=== PATIENT | female | born 1960 | race Caucasian/White ===

== ENCOUNTER 2017-06-27 14:28 | Emergency (ER) | payer BC ==
--- NOTE | 2017-06-27 14:46 | UC ---
Cardiac HPI - HPI Summary HPI Summary: 57 YEAR OLD FEMALE PRESENTS WITH CHEST PAIN AND EXCESSIVE FATIGUE. - History of Current Complaint Chief Complaint: UCChestPain Stated Complaint: CHEST PAIN,DIFFICULTY BREATHING Time Seen by Provider: 06/27/17 14:45 Hx Obtained From: Patient Hx Last Menstrual Period: n/a Onset/Duration: Sudden Onset Initial Severity: Moderate Current Severity: Moderate Chest Pain Location: Left Anterior Character: Slow Aggravating Factor(s): Exertion Alleviating Factor(s): Rest - Allergy/Home Medications Allergies/Adverse Reactions: Allergies Allergy/AdvReac Type Severity Reaction Status Date / Time Morphine Allergy Severe irregular Verified 06/27/17 15:54 heart beat, rash Sulfa Drugs Allergy Severe Irregular Verified 06/27/17 15:54 heartbeat,irregular BP sodium pentothal Allergy Severe irregular Uncoded 06/27/17 15:54 heatbeat and irregular BP Home Medications: Home Medications Ambern 400 mg DAILY 06/27/17 [History Confirmed 06/27/17] PMH/Surg Hx/FS Hx/Imm Hx Previously Healthy: Yes - Surgical History Surgical History: Yes Surgery Procedure, Year, and Place: 3X LAPAROSCOPIES FOR OVARIAN CYSTS EARLY -WISDOM TEETH 1979-PARTIAL HYSTERECTOMY 2006, tubal ligation 1987,Breast augmentation 2001 - Family History Known Family History: Positive: Cardiac Disease - Social History Alcohol Use: Daily Alcohol Amount: 1 glass of wine per night Substance Use Type: None Smoking Status (MU): Never Smoked Tobacco Review of Systems Constitutional: Fatigue Skin: Negative Eyes: Negative ENT: Negative Respiratory: Negative Cardiovascular: Chest Pain Gastrointestinal: Negative Genitourinary: Negative Motor: Negative Neurovascular: Negative Musculoskeletal: Negative Neurological: Negative Psychological: Negative All Other Systems Reviewed And Are Negative: Yes Physical Exam Triage Information Reviewed: Yes Appearance: Ill-Appearing Vital Signs: Initial Vital Signs Temp 36.3 C 06/27/17 14:30 Pulse 70 06/27/17 14:30 Resp 17 06/27/17 14:30 BP 129/73 06/27/17 14:30 Pulse Ox 100 06/27/17 14:30 Eye Exam: Normal ENT Exam: Normal Dental Exam: Normal Neck exam: Normal Neck: Positive: 1 Respiratory Exam: Normal Cardiovascular Exam: Normal Abdominal Exam: Normal Musculoskeletal Exam: Normal Neurological Exam: Normal Psychological Exam: Normal Skin Exam: Normal - Clinical Impression Provider Diagnoses: CHEST PAIN. SLOW HEART RATE Discharge - Discharge Plan Condition: Stable Disposition: HOME Patient Education Materials: Dyspnea (ED), Weakness (ED), Fatigue (ED) Referrals: Chao Aranda DO [Primary Care Provider] - Additional Instructions: PLEASE SUGGESTED TO GO TO [facility] FOR FURTHER CARDIAC WORKUP.
[2017-06-27 14:59] VITALS: BP 126/72
== END 2017-06-27 14:59 | disposition home or self-care (01) ==
LOC: UCCORT 14:28
DX: R07.9 Chest pain, unspecified (principal); R00.1 Bradycardia, unspecified; R94.31 Abnormal electrocardiogram [ECG] [EKG]; Z88.5 Allergy status to narcotic agent; Z88.2 Allergy status to sulfonamides; Z88.8 Allergy status to other drugs, medicaments and biological substances
CPT/HCPCS: 93005; 99212; G0463

== ENCOUNTER 2017-06-27 15:48 | Emergency (ER) | payer BC ==
[2017-06-27 18:12] LABS: Hematocrit 40 % (35-47); Hemoglobin 13.5 g/dl (12.0-16.0); Mean Corpuscular HGB Conc 34 g/dl (31-36); Mean Corpuscular Hemoglobin 32 pg (27-31); Mean Corpuscular Volume 94 fL (80-97); Mean Platelet Volume 8 um3 (7.4-10.4); Red Blood Count 4.21 10^6/ul (4.0-5.4); Red Cell Distribution Width 13 % (10.5-15); White Blood Count 3.4 10^3/ul (3.5-10.8)
[2017-06-27 18:24] LABS: Albumin 4.2 g/dL (3.2-5.2); BUN/Creatinine Ratio 27.8 (8-20); Calcium 9.4 mg/dL (8.6-10.3); EGFR Non-African American 64.5 (>60); Globulin 2.8 g/dL (2-4); Potassium 4.3 mmol/L (3.5-5.0); Total Bilirubin 0.3 mg/dL (0.2-1.0)
[2017-06-27] MEDS ORDERED: NS 0.9% 1000 ML* 1,000 ML IV ONE (18:26)
[2017-06-27 18:31] LABS: Add Diff/Slide Review? Slide Review Added; Comments Flag Yes
--- NOTE | 2017-06-27 18:46 | ED ---
Romeo Smallwood Thomas, scribed for Alvarado Arteaga MD on 06/27/17 at 1803 . HPI Chest Pain - HPI Summary HPI Summary: The pt is a 57 y/o F presenting to the ED c/o CP that began 10 days ago. At onset, the pain was a dull ache that was worsened with movement and deep breaths. Since then, the pain is constant and it is still worse with movement and deep breaths. She still has pain when she is absolutely still. The pain is not reproducible. The pain radiates into her back. The pt rates the pain 5/10. The patient has treated the pain with ASA 324 last night. Pt additionally c/o nausea, hot flashes, and a nonproductive cough. She has treated her hot flashes with Amberen for the last five days. Pt denies leg pain, abd pain, decreased appetite, and SOB. Last year, she had an episode of CP that turned out to be PNA. PMHx: CO, anxiety, PCOS. PSHx: partial hysterectomy, tubal ligation. SHx: no smoking, daily alcohol use, no illicit drug use. FHx: DVT, CAD. She is accompanied by her . 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 - History of Current Complaint Chief Complaint: EDChestPainROMI Time Seen by Provider: 06/27/17 17:59 Hx Obtained From: Patient, Family/Advanced Manufacturing Engineer - is present Hx Last Menstrual Period: n/a Onset/Duration: Started Days Ago - onset 10 days ago, Still Present Timing: Constant Pain Intensity: 5 Pain Scale Used: 0-10 Numeric Chest Pain Radiates: Yes Chest Pain Radiates To:: Back Character: Dull/Aching Aggravating Factor(s): Movement, Deep Breaths, Other: - Pain is still present even when completely still Alleviating Factor(s): Nothing Associated Signs and Symptoms: Positive: Chest Pain, Nausea, Productive Cough, Other: - Hot flashes; NEGATIVE: leg pain, decreased appetite. Negative: Shortness of Breath, Swelling - to feet, Fever, Abdominal Pain - Allergy/Home Medications Allergies/Adverse Reactions: Allergies Allergy/AdvReac Type Severity Reaction Status Date / Time Morphine Allergy Severe irregular Verified 06/27/17 15:54 heart beat, rash Sulfa Drugs Allergy Severe Irregular Verified 06/27/17 15:54 heartbeat,irregular BP sodium pentothal Allergy Severe irregular Uncoded 06/27/17 15:54 heatbeat and irregular BP PMH/Surg Hx/FS Hx/Imm Hx Previously Healthy: No Endocrine/Hematology History: Reports: Hx Thyroid Disease Denies: Hx Diabetes Cardiovascular History: Reports: Other Cardiovascular Problems/Disorders - CO 2008 Denies: Hx Hypertension, Hx Pacemaker/ICD History: Denies: Hx Renal Disease Musculoskeletal History: Reports: Hx Back Problems Sensory History: Denies: Hx Hearing Aid Psychiatric History: Reports: Hx Eating Disorder - 1987 anorexia, Hx Panic Disorder - Surgical History Surgery Procedure, Year, and Place: 3X LAPAROSCOPIES FOR OVARIAN CYSTS EARLY -WISDOM TEETH 1979-PARTIAL HYSTERECTOMY 2006, tubal ligation 1987,Breast augmentation 2001 Infectious Disease History: No Infectious Disease History: Denies: History Other Infectious Disease, Traveled Outside the [place] in Last 30 Days - Family History Known Family History: Positive: Cardiac Disease - Social History Alcohol Use: Daily Alcohol Amount: 1 glass of wine per night Hx Substance Use: No Substance Use Type: Reports: None Hx Tobacco Use: No Smoking Status (MU): Never Smoked Tobacco Review of Systems Positive: Other - Hot flashes. Negative: Fever Positive: Chest Pain - worse with movement and onset today at 14:00 Negative: Shortness Of Breath Positive: Nausea. Negative: Abdominal Pain, Other - NEGATIVE: decreased appetite Negative: Other - NEGATIVE: leg pain All Other Systems Reviewed And Are Negative: Yes Physical Exam Triage Information Reviewed: Yes Vital Signs On Initial Exam: Initial Vitals Temp Pulse Resp BP Pulse Ox 97.4 F 71 16 133/75 97 06/27/17 15:54 06/27/17 15:54 06/27/17 15:54 06/27/17 15:54 06/27/17 15:54 Vital Signs Reviewed: Yes Appearance: Positive: Well-Appearing, No Pain Distress Skin: Positive: Warm, Skin Color Reflects Adequate Perfusion Head/Face: Positive: Normal Head/Face Inspection Eyes: Positive: EOMI ENT: Positive: Normal ENT inspection, Hearing grossly normal, Pharynx normal Neck: Positive: Nontender Respiratory/Lung Sounds: Positive: Clear to Auscultation, Breath Sounds Present Cardiovascular: Positive: RRR. Negative: Murmur Abdomen Description: Positive: Nontender Musculoskeletal: Positive: Strength/ROM Intact, Other - chest wall is non tender to palpation. Negative: Edema Left, Edema Right Neurological: Positive: Sensory/Motor Intact, Alert, Oriented to Person Place, Time, CN Intact II-III Psychiatric: Positive: Normal - Kina Coma Scale Best Eye Response: 4 - Spontaneous Best Motor Response: 6 - Obeys Commands Best Verbal Response: 5 - Oriented Coma Scale Total: 15 Diagnostics - Vital Signs Vital Signs Temp Pulse Resp BP Pulse Ox 06/27/17 17:00 58 13 129/72 98 06/27/17 16:54 65 14 97 06/27/17 16:52 138/59 06/27/17 15:54 97.4 F 71 16 133/75 97 - Laboratory Lab Results: Lab Results 06/27/17 06/27/17 Range/Units 17:00 17:00 Sodium 138 (133-145) mmol/L Potassium 4.3 (3.5-5.0) mmol/L Chloride 107 (101-111) mmol/L Carbon Dioxide 26 (22-32) mmol/L Anion Gap 5 (2-11) mmol/L BUN 25 H (6-24) mg/dL Creatinine 0.90 (0.51-0.95) mg/dL Est GFR ( Amer) 83.0 (>60) Est GFR (Non-Af Amer) 64.5 (>60) BUN/Creatinine Ratio 27.8 H (8-20) Glucose 91 (70-100) mg/dL Lactic Acid 0.7 (0.5-2.0) mmol/L Calcium 9.4 (8.6-10.3) mg/dL Total Bilirubin 0.30 (0.2-1.0) mg/dL AST 17 (13-39) U/L ALT 14 (7-52) U/L Alkaline Phosphatase 58 (34-104) U/L Troponin I 0.00 (<0.04) ng/mL Total Protein 7.0 (6.4-8.9) g/dL Albumin 4.2 (3.2-5.2) g/dL Globulin 2.8 (2-4) g/dL Albumin/Globulin Ratio 1.5 (1-3) Result Diagrams: 06/27/17 17:00 06/27/17 17:00 Lab Statement: Any lab studies that have been ordered have been reviewed, and results considered in the medical decision making process. - EKG 16:02 Cardiac Rate: NL - 67 BPM EKG Interpretation: Sinus rhythm. No acute changes. Chest Pain Course/Dx - Course Assessment/Plan: The pt is a 57 y/o F presenting to the ED c/o CP that began 10 days ago and radiates into her back. At onset, the pain was a dull ache that was worsened with movement and deep breaths. Pt additionally c/o nausea, hot flashes, and a nonproductive cough. - Diagnoses Provider Diagnoses: Pleuritic chest pain Discharge - Discharge Plan Condition: Good Disposition: OTHER Discharge Disposition Comment: awaiting CT angio, dispo; sign out Dr Vasques 190 Referrals: Chao Aranda DO [Primary Care Provider] - The documentation as recorded by the Romeo torres Thomas accurately reflects the service I personally performed and the decisions made by , Alvarado Arteaga MD.
--- NOTE | 2017-06-27 18:53 | RAD ---
INDICATION: Chest pain COMPARISON: Similar chest x-ray dated July 01, 2016 TECHNIQUE: Single AP portable view of the chest was obtained. FINDINGS: Image quality is compromised due to the relative inferiority of a portable chest x-ray. The heart and mediastinum exhibit normal size and contour. The lungs are grossly clear. There is no evidence of a large pleural effusion. Visualized bones are normal for the patient's age. IMPRESSION: No radiographic evidence for acute cardiopulmonary abnormality on this portable chest x-ray.
[2017-06-27] MEDS ORDERED: Iohexol 350* (CONTRAST) 500 ML MDV IV ONE (19:10)
--- NOTE | 2017-06-27 20:08 | RAD ---
INDICATION: Pleuritic chest pain COMPARISON: None TECHNIQUE: Axial source images were acquired following the administration of 62 mL Omnipaque [address] angiographic technique. Coronal and sagittal reconstructed images were constructed and reviewed. FINDINGS: Involving the segmental branches and lobar branch of the right middle lobe there are nonocclusive filling defects consistent with pulmonary embolus (axial image 131 sagittal image 48). There are no focal infiltrates or effusions. There are no pulmonary parenchymal masses. The heart is normal in size. There is no evidence of pericardial effusion. There is no evidence of aortic aneurysm or dissection. There is no mediastinal, hilar, or axillary lymphadenopathy. The visualized osseous structures appear normal. Limited views of the upper abdomen show no abnormalities. IMPRESSION: Partially occlusive lobar and segmental pulmonary emboli involving the right middle lobe pulmonary arteries. Findings were conveyed to Dr. Heath over the telephone at 2005 hours on June 27, 2017.
[2017-06-27 21:01] VITALS: BP 120/72
[2017-06-28] MEDS ORDERED: Rivaroxaban TAB(*) 15 MG PO ONE (21:00)
== END 2017-06-27 21:01 | disposition home or self-care (01) ==
LOC: ED 15:48
DX: R07.81 Pleurodynia (principal); E07.9 Disorder of thyroid, unspecified; I25.2 Old myocardial infarction; Z88.5 Allergy status to narcotic agent; Z88.2 Allergy status to sulfonamides
CPT/HCPCS: 36415; 71010; 71275; 80053; 83605; 84484; 85025; 93005; 96374; 99283; Q9967

== ENCOUNTER 2019-02-02 12:41 | Observation (INO) | payer BC, OTHER ==
--- NOTE | 2019-02-02 13:11 | ED ---
Lower Extremity - HPI Summary HPI Summary: This patient is a 58 year old female presenting to [facility] with a chief complaint of RLE pain after a fall. The patient was at work getting a position sponge for an XR when she fell. They took images there and the patient states she had a dislocated right patella and fractured right knee cap. The patient has previous ligament injury to this knee which healed. The patient has a Hx of pulmonary embolism. The patient rates her pain 5/[address] Alford, orthopedic surgery, told her to come here given her prior Hx and to get admitted for surgery. Pt denies any fever, chills, erythema of eyes, sore throat, CP, SOB, cough, abdominal pain, N/V, dysuria, hematuria, myalgia, edema, rash, or dizziness. Ibuprofen TAB* [Motrin TAB* 400 MG] 400 mg PO BID PRN 11/23/12 [History Confirmed 03/17/18] Betamethasone Valerate 45 gm TP BID 7 Days #1 tube 03/17/18 [Rx] Betamethasone Valerate 45 gm TP BID 7 Days #1 tube 03/17/18 [Rx] Thyroid,Pork [[place] Thyroid] 60 mg PO DAILY 03/17/18 [History Confirmed ] methylPREDNISolone [Medrol Dosepak 4 MG*] 0 mg PO .SEE MAVIS [employer]CTION 6 Days # 1 mavis 03/17/18 [Rx] methylPREDNISolone [Medrol] 4 mg PO .PER MAVIS 6 Days #1 mavis 03/17/18 [Rx] - History of Current Complaint Chief Complaint: EDExtremityLower Stated Complaint: LEFT KNEE FX PER EMS Time Seen by Provider: 02/02/19 12:54 Hx Obtained From: Patient Hx Last Menstrual Period: n/a Mechanism Of Injury: Fall From A Standing Position Onset of Pain: Hours Onset/Duration: Hours Pain Intensity: 5 Pain Scale Used: 0-10 Numeric Timing: Constant Location: Is Discrete @ - Right knee cap - Allergies/Home Medications Allergies/Adverse Reactions: Allergies Allergy/AdvReac Type Severity Reaction Status Date / Time morphine Allergy Rash, Verified 02/02/19 12:54 IRREGULAR HEARTBEAT Sulfa (Sulfonamide Allergy IRREGULAR Verified 02/02/19 12:54 Antibiotics) HEARTBEAT,IRREGULAR BP sodium pentothal Allergy Severe irregular Uncoded 03/17/18 07:44 heatbeat and irregular BP Home Medications: Home Medications Aspirin TAB* [Aspirin 325 MG TAB*] 650 mg PO ONCE 02/02/19 [History Confirmed ] Biotin 10,000 mcg PO DAILY 02/02/19 [History Confirmed 02/02/19] PMH/Surg Hx/FS Hx/Imm Hx Endocrine/Hematology History: Reports: Hx Thyroid Disease Denies: Hx Diabetes Cardiovascular History: Reports: Other Cardiovascular Problems/Disorders - CT 2008 Denies: Hx Hypertension, Hx Pacemaker/ICD History: Denies: Hx Renal Disease Musculoskeletal History: Reports: Hx Back Problems Sensory History: Denies: Hx Hearing Aid Psychiatric History: Reports: Hx Eating Disorder - 1987 anorexia Denies: Hx Panic Disorder - Surgical History Surgery Procedure, Year, and Place: 3X LAPAROSCOPIES FOR OVARIAN CYSTS EARLY -WISDOM TEETH 1979-PARTIAL HYSTERECTOMY 2006, tubal ligation 1987,Breast augmentation 2001 Infectious Disease History: No Infectious Disease History: Denies: History Other Infectious Disease, Traveled Outside the [place] in Last 30 Days - Family History Known Family History: Positive: Cardiac Disease - Social History Alcohol Use: Occasionally Alcohol Amount: 1 glass of wine per night Hx Substance Use: No Substance Use Type: Reports: None Hx Tobacco Use: No Smoking Status (MU): Never Smoked Tobacco Review of Systems Negative: Fever, Chills Negative: Erythema Negative: Sore Throat Negative: Chest Pain Negative: Shortness Of Breath, Cough Negative: Abdominal Pain, Vomiting, Nausea Negative: dysuria, hematuria Negative: Myalgia, Edema Negative: Rash Neurological: Other - Neg: Dizziness All Other Systems Reviewed And Are Negative: No Physical Exam - Summary Physical Exam Summary: Constitutional: Well-developed, Well-nourished, Alert, Cooperative Skin: Warm, Dry HENT: Normocephalic; No Racoons eyes; No clinton's sign; No abrasion; No contusion; No hemotympanum; No maxilla facial tenderness or instability; Dentition are smooth; No dental trauma; No trismus Eyes: EOM normal, PERRL Neck: Trachea is midline. No stridor; No JVD; No step off; No posterior cervical spine tenderness Cardio: Rhythm regular, rate normal Heart sounds normal; Intact distal pulses; The pedal pulses are 2+ and symmetric. Radial pulses are 2+ and symmetric. Pulmonary/Chest wall: Effort normal; Breath sounds normal; Equal chest rise; No flail segment; No rib tenderness; No sternal tenderness Abd: Soft, Appearance normal. No distension; No tenderness; No palpable pulsatile mass; No Cullens sign; No Amaya-Turners sign Musculoskeletal: Extremely limited ROM and tenderness in right knee. Full ROM and no tenderness at hips, ankles, shoulders, elbows bilaterally and left knee; No joint swelling; No vertebral body tenderness; No paraspinal tenderness; No step off or deformity of the spine; Pelvis is stable to lateral compression and rock Neuro: Alert, Oriented x3, Strength 5/5 all extremities. : No blood at urethral meatus Psych: Mood and affect Normal Triage Information Reviewed: Yes Vital Signs On Initial Exam: Initial Vitals Temp Pulse Resp BP Pulse Ox 98.2 F 62 16 133/85 99 02/02/19 12:53 02/02/19 12:53 02/02/19 12:53 02/02/19 12:53 02/02/19 12:53 Vital Signs Reviewed: Yes Diagnostics - Vital Signs Vital Signs Temp Pulse Resp BP Pulse Ox 02/02/19 12:53 98.2 F 62 16 133/85 99 - Laboratory Result Diagrams: 02/02/19 13:20 02/02/19 13:20 Lab Statement: Any lab studies that have been ordered have been reviewed, and results considered in the medical decision making process. - CT Right lower extremity CT Interpretation Completed By: Radiologist Summary of CT Findings: Comminuted fracture of the patella with the main superior component distracted approximately 1.9 cm superiorly the inferior component of the patella. The inferior portion of the patella demonstrates a moderate degree of comminution. ED Provider has reviewed this report. Lower Extremity Course/Dx - Course Course Of Treatment: This patient is a 58 year old female presenting to [facility] with a chief complaint of RLE pain after a fall. The patient was at work getting a position sponge for an XR when she fell. CT RLE shows Comminuted fracture of the patella with the main superior component distracted approximately 1.9 cm superiorly the inferior component of the patella. The inferior portion of the patella demonstrates a moderate degree of comminution. Dr. Alford, Orthopedic Surgery, stated she will perform surgery on her and the patient will be admitted. The patient is agreeable with this plan. - Diagnoses Provider Diagnoses: Comminuted fracture of right patella Discharge - Sign-Out/Discharge Documenting (check all that apply): Patient Departure - Admission - Discharge Plan Condition: Stable Disposition: ADMITTED TO [facility] - Attestation Statements Document Initiated by Scribe: Yes Documenting Scribe: Charlie Ramirez Provider For Whom Scribe is Documenting (Include Credential): August Lowry MD Scribe Attestation: Charlie Smallwood, scribed for August Lowry MD on 02/02/19 at 1611.
[2019-02-02] MEDS ORDERED: Famotidine IV* 10 MG/ML 2 ML (20 mg) IV SLOW PU ONE (13:49)
[2019-02-02 13:57] LABS: Hematocrit 37 % (35-47); Hemoglobin 12.5 g/dL (12.0-16.0); Mean Corpuscular HGB Conc 34 g/dL (31-36); Mean Corpuscular Hemoglobin 32 pg (27-31); Mean Corpuscular Volume 93 fL (80-97); Mean Platelet Volume 8.1 fL (7.4-10.4); Platelet Count 251 10^3/uL (150-450); Red Blood Count 3.98 10^6 /uL (3.70-4.87); Red Cell Distribution Width 13 % (10.5-15)
[2019-02-02] MEDS ORDERED: Metoclopramide IV* 5 MG/ML 2 ML VIAL IV SCH (14:00)
[2019-02-02 14:08] LABS: Albumin 4.3 g/dL (3.2-5.2); Albumin/Globulin Ratio 1.9 (1-3); Calcium 9.5 mg/dL (8.6-10.3); EGFR African American 87.9 (>60); EGFR Non-African American 72.6 (>60); Globulin 2.3 g/dL (2-4); Potassium 3.9 mmol/L (3.5-5.0); Total Bilirubin 0.6 mg/dL (0.2-1.0); Total Protein 6.6 g/dL (6.4-8.9)
[2019-02-02 14:22] LABS: Activated Partial Thrombo Time 27.5 seconds (26.0-36.3); INR 1.08 (0.82-1.09)
[2019-02-02] MEDS ORDERED: Famotidine IV* 10 MG/ML 2 ML (20 mg) ONE (14:26)
[2019-02-02] MEDS ORDERED: Metoclopramide IV* 5 MG/ML 2 ML VIAL ONE (14:26)
--- NOTE | 2019-02-02 14:36 | HP ---
HISTORY AND PHYSICAL: DATE OF ADMISSION: 02/02/19 PROVIDER: Chao Fernandes MD * (DICTATED BY KALIE CARRASCO) CHIEF COMPLAINT: Right knee injury. HISTORY OF PRESENT ILLNESS: Cecily is a 58-year-old female who presents to the emergency room with complaints of a left knee injury that she sustained earlier today. 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 She had x-rays obtained immediately after that and was found to have a right patella fracture. She was then transferred to the emergency room for further evaluation. PAST MEDICAL HISTORY: Hypothyroidism and a history of pulmonary embolism. PAST SURGICAL HISTORY: Multiple laparoscopies, partial hysterectomy and breast augmentation. She reports no complications with anesthesia with those procedures. CURRENT MEDICATIONS: [place] Thyroid 60 mg daily. ALLERGIES: MORPHINE and SULFA DRUGS. 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 She lives with her . She denies tobacco use. She drinks 2 to 3 glasses of wine daily. She exercises occasionally. REVIEW OF SYSTEMS: Constitutional: Negative for recent hospitalizations, fevers or chills. Positive for occasional night sweats due to menopause. Head : Negative for dizziness, lightheadedness, or frequent headaches. Eyes: Negative for blurred or double vision. ENT: Negative for sore throat, runny nose, frequent nosebleeds or hearing changes. Cardiovascular: Negative for history of heart murmur, heart palpitations, high blood pressure. Positive for an embolism. Negative for known deep vein thrombosis. Respiratory: Negative for chronic cough, shortness of breath with exertion, asthma or COPD. Gastrointestinal: Negative for heartburn, nausea, vomiting, diarrhea, constipation or GERD. Genitourinary: Negative for nighttime urination, frequency of urination, urinary tract infections, or kidney problems. Musculoskeletal: Negative for chronic back or neck pain. Positive for recent fracture. Skin: Negative for rashes, lesions, lumps or sores. Neurologic: Negative for history of seizure, stroke, epilepsy, depression, or anxiety. Endocrine: Negative for diabetes. Positive for hypothyroidism. Hematology: Negative for easy bleeding, bruising, or anemia. PHYSICAL EXAMINATION GENERAL: She is a well-developed, well-nourished female, in moderate pain, lying on the emergency room stretcher. VITAL SIGNS: The patient is 5 feet 7-1/2 inches tall, she is 148 pounds. Blood pressure 133/85, pulse is 62, respirations 16, temperature 98.2. HEENT: Normocephalic, atraumatic. Her hearing and vision are grossly intact. NECK: Her trachea is midline. CARDIOVASCULAR: Regular rate and rhythm. No murmurs, rubs, or gallops appreciated. RESPIRATORY: Her lungs are clear to auscultation bilaterally. No wheezes, rales, or rhonchi. ABDOMEN: Soft, nondistended, nontender. EXTREMITIES: Exam of the right lower extremity: The patient has a very small abrasion over the anterior aspect of her knee. There is mild ecchymosis and some localized swelling over the patella present. She has tenderness to palpation at the peripatellar area. She is nontender over the medial and lateral aspects or the posterior aspect of her knee. Flexion and extension were not assessed secondary to pain. Her calf is soft and nontender distally. She is neurovascularly intact. IMAGING: AP and lateral views of the right knee were reviewed and showed a severely comminuted, significantly displaced patellar fracture. IMPRESSION: Right patellar fracture. PLAN: The patient will be admitted to [facility] to undergo open reduction internal fixation of the right patella. The risks, benefits, and postoperative course will be discussed with the patient prior to consenting for the surgery. Postoperatively, the patient will be on anticoagulation given her history of pulmonary embolism. She will be locked in extension for at least 6 weeks postoperatively as well, but may begin weightbearing as tolerated in the brace. We will follow up with this patient postoperatively. KALIE CARRASCO [id number]/[facility] #: [id number] DANNY
[2019-02-02] MEDS ORDERED: Midazolam* 1 MG/ML 2 ML VIAL (2 MG) ONE ×2 (15:02→16:59)
[2019-02-02] MEDS ORDERED: fentaNYL* 50 MCG/ML 2 ML VIAL (100 MCG VIAL) ONE (15:02)
[2019-02-02] MEDS ORDERED: Bupivacaine 0.5% W/EPI SDV* 30 ML VIAL ONE (15:13)
[2019-02-02] MEDS ORDERED: ceFAZolin 2 GM PREMIX in ORs 2 GM/50 ML BAG IVPB ONE (15:39)
[2019-02-02] MEDS ORDERED: Bupivacaine 0.5% SDV PF* 30ML VIAL ONE (15:47)
[2019-02-02] MEDS ORDERED: Lidocaine 2% PF * 5 ML VIAL ONE (16:57)
[2019-02-02] MEDS ORDERED: Propofol* 10 MG/ML 20 ML BTL ONE (16:57)
[2019-02-02] MEDS ORDERED: oxyCODONE/Acetamin 5/325 MG* TAB PO PRN ×2 (19:04→19:08)
[2019-02-02] MEDS ORDERED: Ketorolac INJ* 30 MG/ML 1 ML VIAL IV PRN (19:04)
[2019-02-02] MEDS ORDERED: HYDROcodone/ACETAMIN 5-325 MG* 1 TAB PO PRN (19:04)
[2019-02-02] MEDS ORDERED: fentaNYL* 50 MCG/ML 2 ML VIAL (100 MCG VIAL) IV PRN (19:04)
[2019-02-02] MEDS ORDERED: Ondansetron INJ* 2 MG/ML VIAL IV PRN (19:04)
[2019-02-02] MEDS ORDERED: Naloxone* 0.4 MG/ML 1 ML VIAL IV PRN (19:04)
[2019-02-02] MEDS ORDERED: diPHENhydraMINE IV* 50 MG/ML 1 ml VIAL (BENADRYL) IV PRN (19:08)
[2019-02-02] MEDS ORDERED: Morphine INJ* 2 MG/ML 1 ML SYRINGE (TWO MG - NEW SYRINGE VERSION) IV PRN (19:08)
[2019-02-02] MEDS ORDERED: Magnesium Hydroxide LIQ* 30 ML UDC PO PRN (19:08)
[2019-02-02] MEDS: Acetaminophen TAB* 325 MG PO SCH (22:41)
[2019-02-02] MEDS: Magnesium Hydroxide LIQ* 30 ML UDC PO SCH (22:42)
[2019-02-02] MEDS: Lactated Ringers 1000 ML Bag* 1,000 ML IV SCH (22:42)
[2019-02-02] MEDS: Docusate CAP* 100 MG PO SCH (22:42)
[2019-02-03] MEDS: HYDROmorphone INJ1* 1 MG/ML SYRINGE IV PRN ×3 (01:41→17:57)
[2019-02-03] MEDS: Ondansetron INJ* 2 MG/ML VIAL IV PRN ×2 (01:41→10:24)
[2019-02-03] MEDS: Acetaminophen TAB* 325 MG PO SCH ×3 (06:00→22:25)
[2019-02-03] MEDS: ceFAZolin 1 GM ADVAN(*) 1 GM in NS 0.9% 50 ML* 50 ML IVPB SCH ×4 (07:40→16:25)
[2019-02-03] MEDS: oxyCODONE/Acetamin 5/325 MG* TAB PO PRN ×4 (07:41→16:26)
[2019-02-03] MEDS ORDERED: Diazepam TAB(*) 5 MG PO PRN (09:54)
--- NOTE | 2019-02-03 10:02 | PN ---
Progress Note - Progress Note Date of Service: 02/03/19 SOAP: Subjective: Much pain overnight. Also felt so GI upset, so narcotics changed overnight. Still some numbness and tingling right foot after spinal anesthesia Objective: RLE: - Dressing c/d/i - Knee brace in place - Sensation intact to light touch right foot, motor intact Selected Entries 02/03/19 07:24 Temperature 98.6 F Pulse Rate 62 Respiratory 16 Rate Blood Pressure 128/59 (mmHg) O2 Sat by Pulse 96 Oximetry Laboratory Tests 02/02/19 13:20 WBC 5.0 Hct 37 X-rays in PACU confirm excellent reduction and fixation of a complex comminuted patella fracture Assessment: POD 1 R patella open reduction internal fixation Plan: - Knee brace on at all times, day and night. Maintain knee in full extension - I removed the pillow from underneath her knee. Please no pillows as this can flex the knee. - Pain control. We will add muscle relaxants to help with muscle spasm pain typically seen after this procedure. - OT/PT can be consulted for help with living at home with postop limitations. But no strengthening or ROM RLE. Patient is to use an assist device at all times, crutches or walker and is toe touch weight bearing right lower extremity with the knee brace or immobilizer in place - Dispo planning - Ancef q 8 hours until discharge - Given history of PE, we have placed patient on Lovenox 40mg SQ daily
[2019-02-03] MEDS: Lactated Ringers 1000 ML Bag* 1,000 ML IV SCH ×2 (10:23→21:54)
[2019-02-03] MEDS: Cyclobenzaprine TAB* 10 MG PO PRN ×2 (10:24→17:56)
[2019-02-03] MEDS: Docusate CAP* 100 MG PO SCH ×2 (10:41→21:54)
[2019-02-03] MEDS: Magnesium Hydroxide LIQ* 30 ML UDC PO SCH ×2 (10:41→21:54)
[2019-02-03] MEDS ORDERED: Scopolamine 1.5 mg* PATCH TRANSDERM SCH (11:00)
[2019-02-03] MEDS: Enoxaparin(*) 40 MG/0.4 ML SYR SUBCUT SCH (11:27)
--- NOTE | 2019-02-04 02:52 | OP ---
OPERATIVE REPORT: DATE OF OPERATION: 02/02/19 DATE OF : 60 SURGEON: Chao Fernandes MD COMMERCIAL INTERN: 1. KALIE Villanueva 2. KALIE Devine A physician business banking sales assistant was required for the length of the procedure for help with patient positioning, instrumentation, retraction, and closure. ANESTHESIOLOGIST: Dr. Malissa Suárez. ANESTHESIA: Spinal anesthesia. PRE-OP DIAGNOSIS: Right patellar fracture, severely comminuted and displaced. POST-OP DIAGNOSIS: Right patellar fracture, severely comminuted and displaced. OPERATIVE PROCEDURE: Open reduction, internal fixation, right patella. ANTIBIOTICS: Ancef 2 g IV. IV FLUIDS: 800 cc of lactated Ringer's. TOURNIQUET TIME: 128 minutes at 300 mmHg, right thigh tourniquet. ZVEG-WT-PCLL TIME: 126 minutes. RADIATION UTILIZED: Large or regular C-arm. 43.8 seconds with an exposure of 0.20723 mGy meter squa re. SPECIMEN: None. IMPLANTS: Arthrex partially threaded cannulated 4.0 mm screw from the patellar screw set x1. Fiber tape, 2 mm x3. COMPLICATIONS: None. ESTIMATED BLOOD LOSS: Minimal. 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 The patient fell from a standing height directly onto her right knee, anterior aspect. She had sever e pain and deformity of the right knee. In clinic, per report, the patient had significant tenting o f the skin by the fracture ends of the patella, concerning for a situation that could develop into an open fracture, with erosion of skin. X-rays in clinic had shown a patellar fracture. The patient was brought by ambulance to [facility] for workup and treatment. I was availa ble in the operating room. I examined the patient in the preoperative holding. The patient at this point had significant soft t issue swelling about the anterior aspect of the knee. While the bone was no longer tenting the skin, I was worried about a possible skin or soft tissue compromise. There was no clear area where bone h ad protruded through the skin, although there was one area of small and several millimeters of skin c ompromise, likely from out to in trauma. The patient had been NPO for just over 4 hours at this poin t. We decided to move forward with surgery as an emergency given concerns about compromise of the an terior soft tissues of the knee given its initial severe tenting and the significant swelling. DESCRIPTION OF PROCEDURE: In the preoperative holding, the patient signed a written consent. Operat garcia extremity was marked in the preoperative holding. The patient was taken to the operating room an d placed supine on the operating room table. The patient underwent a spinal anesthesia performed by Dr. Suárez of Anesthesia. The patient was then laid supine again. A blanket yamileth-bump was placed unde r the right hemipelvis. The right lower extremity was prepped and draped. Tourniquet had been place d around the proximal right thigh prior to prepping and draping. A surgical time-out was then perfor med. Esmarch was applied and tourniquet was elevated to 300 mmHg. Anterior midline and longitudinal skin incision made. I changed knives and incised down to the exten sor mechanism. Identified a prominent transverse fracture line, a bit about the proximal patella, 20 % [address] from proximal and distal along the patella. X-rays and CT scan preoperatively had ident ified this as a major fracture line. Through that large fracture line, we irrigated well the entiret y of the knee and I debrided some blood and hematoma with curettes, rongeur, sponges. I was able to maintain most of the soft tissue, periosteal wound closure around the distal 80% of the patella. On examination of this part of the patella confirmed what CT scan had shown and that was i nnumerable fracture fragments. There has been some clear deformity to the fracture fragments with di splacement, visible both on CT scan, visible by direct visualization intraoperatively. By manually p ressing these fragments together, I was able to assess the subchondral surface and noted that it was fairly well aligned, with less than 1 mm or 2 of stepoff anywhere. on, considered provisional or final fixation of some of the fragments distally with K-wires. I placed 2 transverse-oriented K-wires in the mid patella to lend some provisional stability prior to more definitive fixation. It was not clear how good the purchase of these pins was as there were so many fracture lines, that ran in the frontal or coronal plane as well in the sagittal and axial plan es. I used sutures to provisionally reduce the patella along with my fingers. By visualization and palpa tion, the reduction appeared adequate. It was never going to be perfect as it could easily be visual ized at the main transverse proximal fracture line because deformity of the bone with the injury had made it clear that the bone fragments would not fit together like puzzle pieces. So that there would be some sort of stepoff. I wanted to minimize this stepoff. After reducing the bone, I placed a cerclage using fiber tape. Adequacy of reduction before and afte r fiber tape was confirmed by visualization, palpation as well as C-arm imaging. I am very happy wit h the reduction. I next proceeded to get some fixation in the longitudinal direction, to try to offset good tendency f or a flexion deformity of the patella and diastasis. Evaluation of the CT preoperative had shown smal l fragmented bone about the distal tongue or nose of the patella. I placed a screw from distal to pr oximal using the Arthrex set. This actually obtained excellent purchase. There was palpably excelle nt purchase of the screw and bone, somewhat surprisingly. I next placed a fiber tape through that cannulated screw and tied it over the superficial aspect of t he patella. I next removed my provisional sutures that were performing reduction. I next placed a second cerclage using fiber tape. Wanting to supplement further, my 2 cerclages and screw, I next placed a whip stitch using FiberWire #2 suture from the quadriceps to the patellar tendon and back again. Irrigation. I closed medial and lateral retinaculum transverse tears with [id number] stitches using Ethibond #1 suture. I closed incisions and extensor mechanism with [id number]-[id number] stitches using Vicryl 0 s uture. Irrigation. Closure of the subcutaneous layer with buried simple stitches using Vicryl 2-0 s uture. Closure of skin with jairo. Xeroform, 4x4's, ABD, sterile Webril, Shiva bandage from foot to proximal thigh. The tourniquet was dr menendez. DISPOSITION: The patient was admitted postoperatively for pain management and physical therapy. Ext ensor mechanism of the knee injuries often required this. The patient was to be toe-touch weightbeari ng with the knee brace on to the right lower extremity. Knee brace was to be on at all times day and night. The patient will have her first dressing change on postoperative day 3. The patient will ge t Ancef 1 g IV q.8 hours at least 24 hours postoperatively or until discharge if discharge is sooner. The patient will follow up with me in clinic 2 weeks postoperatively. Because the patient has a hi story of an unprovoked pulmonary embolism, I will place her on Lovenox 40 mg subcu daily for at least 4 weeks postoperatively. [id number]/[facility] #: [id number]
[2019-02-04] MEDS: oxyCODONE/Acetamin 5/325 MG* TAB PO PRN ×3 (05:54→13:56)
[2019-02-04] MEDS: Acetaminophen TAB* 325 MG PO SCH ×2 (05:57→12:27)
--- NOTE | 2019-02-04 09:05 | PN ---
Progress Note - Progress Note Date of Service: 02/04/19 SOAP: Subjective: Pain and nausea reduced. Objective: RLE: - Dressing c/d/i - NVID Selected Entries 02/04/19 03:59 Temperature 98.0 F Pulse Rate 78 Respiratory 18 Rate Blood Pressure 124/59 (mmHg) O2 Sat by Pulse 97 Oximetry Assessment: POD 2 ORIF R patella fracture Plan: - OT - Toe touch weight bearing with knee brace on and locked in extension and walker or crutches - Pain control with muscle relaxants and narcotics - Dispo planning - Ancef x 24 hours postop or (if sooner) until hospital discharge
[2019-02-04] MEDS: Magnesium Hydroxide LIQ* 30 ML UDC PO SCH (09:12)
[2019-02-04] MEDS: Docusate CAP* 100 MG PO SCH (09:13)
[2019-02-04] MEDS: Enoxaparin(*) 40 MG/0.4 ML SYR SUBCUT SCH (12:30)
[2019-02-04] MEDS: Cyclobenzaprine TAB* 10 MG PO PRN (12:32)
[2019-02-04 15:36] VITALS: BP 132/68
--- NOTE | 2019-02-06 01:07 | DS ---
DISCHARGE SUMMARY: DATE OF ADMISSION: 02/02/19 DATE OF DISCHARGE: 02/04/19 ATTENDING PHYSICIAN: Chao Fernandes MD * (DICTATED BY KALIE LOONEY) PRINCIPAL DIAGNOSIS: Right knee patellar fracture. SECONDARY DIAGNOSES: 1. Hypothyroidism. 2. History of pulmonary embolism. PRINCIPAL PROCEDURE: Open reduction and internal fixation of right knee patellar fracture. REASON FOR HOSPITALIZATION: Cecily is a 58-year-old female who presented to the emergency department with complaints of left knee injury that she sustained while at work. 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 She had x-rays obtained immediately after that and was found to have right patellar fracture. She was then transferred to the emergency room for further evaluation. HOSPITAL COURSE: She was admitted to the hospital on 02/02/19 for right knee patellar fracture and was taken to the operating room on the same day for open reduction and internal fixation of the right knee patellar fracture. She underwent surgery without any complications. She was transferred to the recovery room and subsequently the surgical stay unit in a stable condition. She had been taking Percocet and Dilaudid for postoperative pain management. She has also had been taking Valium and Flexeril for muscle spasms. Her vital signs have remained stable throughout the hospital course, including remaining afebrile. Her CBC was obtained on the day of admission. Her hemoglobin was 12.5, hematocrit was 37. She participated in physical therapy and occupational therapy throughout the hospital course. She has been getting around well with a walker and/or crutches. The Dilaudid IV was discontinued on postop day #2 and her pain was well controlled with oral narcotics. She was discharged to home in a stable condition on 02/04/19. DISCHARGE INSTRUCTIONS: Toe-touch weightbearing. Wound care: Okay to shower 3 days after surgery, cover the dressings. Dressings should remain on until followup appointment. Knee immobilizer at all times with use of crutches. Call orthopedic office for increased drainage, redness, increased pain or fever , go to ER with shortness of breath, palpitations, or chest pain. Regular diet. Increase fluids and fiber to prevent constipation. Continue to use stool softeners. Call office if no bowel motion within 48 hours. Continue physical therapy and occupational therapy exercises as shown. DVT prophylaxis, Lovenox subcutaneous daily for 4 weeks. Antibiotics required prior to any dental work, call office for prescription. Follow up with Dr. Fernandes within 2 weeks. Call for appointment. Robbin will be removed at this appointment. Call our office with any questions or concerns, . KALIE LOONEY [id number]/[facility] #: [id number] DANNY
== END 2019-02-04 16:15 | disposition home or self-care (01) ==
LOC: ED 12:41 → OR 15:49 → SSU 19:09
PROVIDERS: ADMIT Orthopaedic Surgery; ATTEND Orthopaedic Surgery
DX: S82.001A Unspecified fracture of right patella, initial encounter for closed fracture (principal); E03.9 Hypothyroidism, unspecified; Z86.711 Personal history of pulmonary embolism; W19.XXXA Unspecified fall, initial encounter; Y92.9 Unspecified place or not applicable; R60.0 Localized edema; Z88.2 Allergy status to sulfonamides; Z88.6 Allergy status to analgesic agent
CPT/HCPCS: 36415; 76000; 80053; 85027; 85610; 85730; 86850; 86900; 86901; 96365; 96372; 96375; 96376; 99284; A9270-GY; C1713; G0378; J0690; J1170; J1650; J2250; J2405; J2704; J2765; J3010; J3490